=== PATIENT | female | born 1985 | race Caucasian/White ===

== ENCOUNTER 2016-04-04 18:13 | Inpatient (IN) | payer MEDICAID ==
[~2016-04-04] VITALS: Ht 160 cm; Wt 80.0 kg
[~2016-04-04 18:13] MED LIST: ACET325T45 PO; FERR27TA PO; Lanolin TOP; PREN1TAB49 PO
[2016-04-04 18:33] VITALS: BP 116/71; PULSE 91; RESP 19; Ht 160 cm; Wt 80.0 kg
--- NOTE | 2016-04-04 18:40 | TRIAGE ---
OB Triage Datetime Report Generated by CPN: 04/04/2016 18:40 Datetime: 04/04/2016 18:36 Maternal Assessment Level of Consciousness: Fully Conscious DTR's/Clonus: DTRs 1+ Headache: Denies Blurred Vision: No Respiratory Effort: Unlabored Breath Sounds, Left: Clear and Equal Breath Sounds, Right: Clear and Equal Nausea/Vomiting: Denies RUQ Epigastric Pain: Denies Facial Edema: None Labor Evaluation Frequency: 5 Monitor Mode: External Duration (sec)2399: 60-80 Quality: Mild Pattern: Normal: <= 5 Contractions in 10 Minutes Resting Tone Downing: Relaxed Heart Rate FHR Baseline Rate: 125 Monitor Mode: External US Variability: Moderate 6-25 bpm Accelerations: 15X15 Decelerations: None Category: Category I Pain Assessment Pain Scale: 0 Pain Presence: None/Denies Pain Type: N/A Pain Goal: 3 Vaginal Exam Membrane Status: Ruptured Datetime: 04/04/2016 18:29 EGA: 39.2 Datetime: 04/04/2016 18:15 Assessment Type: Triage Maternal Assessment Level of Consciousness: Fully Conscious DTR's/Clonus: DTRs 2+; No Clonus Headache: Denies Blurred Vision: No Respiratory Effort: Unlabored; Regular Rhythm; Equal Expansion Breath Sounds, Left: Clear and Equal Breath Sounds, Right: Clear and Equal Nausea/Vomiting: Denies RUQ Epigastric Pain: Denies Lower Extremities Edema: None Degree: None Upper Extremities Edema: None Degree: None Facial Edema: None Fall Risk Assessment History of Falling: (0) No Secondary Diagnosis: (0) No Ambulatory Aid: (0) Bedrest/Nurse Assist IV Therapy: (0) No Gait: (0) Normal/Bedrest/Immobile Mental Status: (0) Oriented to Own Ability Fall Score: 0 Fall Risk Score Definition: No Risk: No action required Datetime: 04/04/2016 18:06 Time of Arrival: 04/04/2016 18:06 Arrived By: Ambulatory Arrived From: Home Chief Complaint: PT CAME IN C/O SROM SINCE 1740 STATES CLEAR FLUID Movement: Present Contractions: Denies/Absent Rupture of Membranes: Denies Vaginal Discharge: Denies Recent Sexual Intercouse: Denies Abdominal Trauma: Not Applicable Additional Patient Complaints: NONE Time Provider Notified: 04/04/2016 18:18 Provider Notified: NEGRA Initial Plan: MONITOR AND VE
[2016-04-04] MEDS ORDERED: LACTATED RINGER'S 1,000 ML IV PRN (19:48)
[2016-04-04] MEDS ORDERED: BUTORPHANOL 2 MG INJ IV PRN (20:00)
[2016-04-04] MEDS ORDERED: CARBOPROST 250 MCG INJ IM PRN (20:00)
[2016-04-04] MEDS ORDERED: METHYLERGONOVINE 0.2 MG INJ IM PRN (20:00)
[2016-04-04] MEDS ORDERED: OXYTOCIN 30 UNITS/LR 500 ML IV PRN (20:00)
[2016-04-04] MEDS ORDERED: OXYTOCIN 30 UNITS/LR 500 ML IV SCH ×2 (20:00)
[2016-04-04] MEDS ORDERED: AMPICILLIN 2 GM/NS (PMX) 100 ML IV ONE (20:00)
[2016-04-04] MEDS ORDERED: ACETAMINOPHEN 325 MG TAB PO PRN (20:00)
[2016-04-04] MEDS ORDERED: MISOPROSTOL 200 MCG TAB PR PRN (20:00)
[2016-04-04] MEDS ORDERED: IBUPROFEN 600 MG TAB PO PRN (20:00)
[2016-04-04] MEDS ORDERED: LIDOCAINE 1% (MPF) 30 ML INJ INJ PRN (20:00)
[2016-04-04 20:02] LABS: INR 0.94; PROTIME 12.6 Sec (12.2-14.2)
[2016-04-04 20:03] LABS: PARTIAL THROMBOPLASTIN TIME 28.4 Sec (25.0-35.0)
[2016-04-04] MEDS: LACTATED RINGER'S 1,000 ML IV SCH (20:05)
[2016-04-04 20:12] LABS: EOSINOPHILS # 0.1 10^3/ul (0.0-0.5); EOSINOPHILS % 0.8 % (0.0-7.0); HEMOGLOBIN 12.2 g/dl (12.0-16.0); LYMPHOCYTES # 1.3 10^3/ul (0.8-2.9); LYMPHOCYTES % 14.2 % (15.0-51.0); MEAN CORPUSCULAR HEMOGLOBIN 28.9 pg (29.0-33.0); MEAN CORPUSCULAR HGB CONC 33.9 g/dl (32.0-37.0); MEAN CORPUSCULAR VOLUME 85.2 fl (82.0-101.0); MEAN PLATELET VOLUME 10.4 fl (7.4-10.4); MONOCYTE # 0.4 10^3/ul (0.3-0.9); MONOCYTES % 4.4 % (0.0-11.0); NEUTROPHIL # 7.6 10^3/ul (1.6-7.5); NEUTROPHILS % 80.6 % (39.0-77.0); PLATELET COUNT 200 10^3/UL (140-440); RED BLOOD COUNT 4.23 10^6/ul (4.20-5.40); RED CELL DISTRIBUTION WIDTH 14.1 % (11.5-14.5); UNCORRECTED WBC 9.4 10^3/ul (4.8-10.8); WHITE BLOOD COUNT 9.4 10^3/ul (4.8-10.8)
[2016-04-04 20:15] LABS: CONDITION 1
[2016-04-04] MEDS: AMPICILLIN 1 GM/NS (PMX) 50 ML IV SCH (23:26)
[2016-04-05] MEDS: LACTATED RINGER'S 1,000 ML IV SCH ×3 (00:47→11:12)
[2016-04-05] MEDS: AMPICILLIN 1 GM/NS (PMX) 50 ML IV SCH ×3 (03:32→10:27)
[2016-04-05] MEDS ORDERED: OXYTOCIN 30 UNITS/LR 500 ML IV SCH ×2 (05:57→15:41)
[2016-04-05] MEDS ORDERED: FENTAnyl 2MCG/ML-ROPIV 0.2% 100 ML ONE (11:20)
[2016-04-05] MEDS ORDERED: NALOXONE (0.4 MG/ML) INJ IV PRN (12:00)
[2016-04-05] MEDS ORDERED: FENTAnyl 2MCG/ML-ROPIV 0.2% 100 ML BAG EPI SCH (12:00)
[2016-04-05] MEDS ORDERED: TERBUTALINE 1 ML ONE (13:11)
[2016-04-05] MEDS ORDERED: TERBUTALINE 1 MG/ML INJ SC ONE (13:13)
--- NOTE | 2016-04-05 13:56 | HP ---
Date/Time of Note Date/Time of Note DATE: 04/05/16 TIME: 13:55 OB - History Hx of Present Free Text/Dictation IN LABOR WITH SROM Care: Good Care Ultrasounds: Normal mid trimester US Obstetrical Complications: None Medical Complications: None Past Family/Social History * Past Medical, Surgical, Family and Obstetric Histories reviewed from chart. OB Admission Exam Vital Signs Vital Signs Vital Signs Date Time Temp Pulse Resp B/P Pulse Ox O2 Delivery O2 Flow Rate FiO2 04/04/16 18:33 98.6 91 19 116/71 99 Room Air Physical Exam HEENT: WNL Heart: Rhythm Normal Lungs: Clear, Equal Abdomen: WNL Extremities: Normal Reflexes: Normal Last 72 hours Lab Results CBC & BMP 04/04/16 19:10 OB Assessment/Plan Reason for admission: active labor Plan: Expectant Management ZIGGY OMER MD Apr 05, 2016 13:56
--- NOTE | 2016-04-05 13:56 | LDN ---
Date/Time of Note Date/Time of Note DATE: 04/05/16 TIME: 13:56 Delivery Summary NSD . W/O COMPLICATIONS Placenta Delivered: Spontaneously Meconium: none Perineum intact?: Yes Anesthesia type: Epidural Estimated blood loss: 350 Sponge & Needle done & correct: Yes All needle counts correct: Yes Any foreign bodies felt in the: Yes Problems: ZIGGY OMER MD Apr 05, 2016 13:56
[2016-04-05 15:50] VITALS: BP 112/53; PULSE 84; RESP 20
[2016-04-05] MEDS ORDERED: LANOLIN 7 GM TUBE TOP PRN (16:00)
[2016-04-05] MEDS ORDERED: MAGNESIUM HYDROXIDE 30ML CUP PO PRN (16:00)
[2016-04-05] MEDS ORDERED: ZOLPIDEM 5 MG TAB PO PRN (16:00)
[2016-04-05] MEDS ORDERED: DIPHENHYDRAMINE 25 MG CAP PO PRN (16:00)
[2016-04-05] MEDS ORDERED: WITCH HAZEL/GLYCERIN PAD PR PRN (16:00)
[2016-04-05] MEDS ORDERED: ACETAMINOPHEN 325 MG TAB PO PRN (16:00)
[2016-04-05] MEDS ORDERED: ACETAMINOPHEN/CODEINE #3 TAB PO PRN (16:00)
[2016-04-05] MEDS ORDERED: METHYLERGONOVINE 0.2 MG INJ IM PRN (16:00)
[2016-04-05] MEDS ORDERED: SENNA/DOCUSATE NA (8.6MG/50MG) TAB PO PRN (16:00)
[2016-04-05] MEDS ORDERED: BENZOCAINE 20% 56 ML SPRAY TOP PRN (16:00)
[2016-04-05] MEDS ORDERED: OXYTOCIN 30 UNITS/LR 500 ML IV PRN (16:00)
[2016-04-05] MEDS ORDERED: MISOPROSTOL 200 MCG TAB PR PRN (16:00)
[2016-04-05] MEDS ORDERED: CARBOPROST 250 MCG INJ IM PRN (16:00)
[2016-04-05 17:00] VITALS: BP 108/58; PULSE 81; RESP 19
[2016-04-05] MEDS: IBUPROFEN 800 MG TAB PO SCH ×2 (17:53→23:51)
[2016-04-05] MEDS: LACTATED RINGER'S 1,000 ML IV* SCH ×2 (20:00→23:52)
[2016-04-05 20:10] VITALS: BP 112/56; PULSE 64; RESP 20
[2016-04-06 00:10] VITALS: BP 101/56; PULSE 64; RESP 18
[2016-04-06 04:00] VITALS: BP 98/54; PULSE 66; RESP 16
[2016-04-06] MEDS: IBUPROFEN 800 MG TAB PO SCH ×3 (06:07→17:26)
[2016-04-06] MEDS: LACTATED RINGER'S 1,000 ML IV* SCH ×3 (07:41→23:41)
[2016-04-06 08:00] VITALS: BP 98/54; PULSE 59; RESP 16
[2016-04-06 08:25] LABS: BASOPHILS % 0.3 % (0.0-2.0); EOSINOPHILS # 0.1 10^3/ul (0.0-0.5); EOSINOPHILS % 1.2 % (0.0-7.0); HEMATOCRIT 31.8 % (37.0-47.0); HEMOGLOBIN 10.9 g/dl (12.0-16.0); LYMPHOCYTES # 1.5 10^3/ul (0.8-2.9); LYMPHOCYTES % 17.7 % (15.0-51.0); MEAN CORPUSCULAR HEMOGLOBIN 29.5 pg (29.0-33.0); MEAN CORPUSCULAR HGB CONC 34.3 g/dl (32.0-37.0); MEAN CORPUSCULAR VOLUME 85.9 fl (82.0-101.0); MEAN PLATELET VOLUME 9.8 fl (7.4-10.4); MONOCYTE # 0.6 10^3/ul (0.3-0.9); MONOCYTES % 6.6 % (0.0-11.0); NEUTROPHIL # 6.4 10^3/ul (1.6-7.5); NEUTROPHILS % 74.2 % (39.0-77.0); PLATELET COUNT 148 10^3/UL (140-440); RED CELL DISTRIBUTION WIDTH 14.6 % (11.5-14.5); UNCORRECTED WBC 8.7 10^3/ul (4.8-10.8); WHITE BLOOD COUNT 8.7 10^3/ul (4.8-10.8)
[2016-04-06 08:36] LABS: CONDITION 1; LH ANALYZER COMMENTS 1
--- NOTE | 2016-04-06 14:24 | DS ---
Date/Time of Note Date/Time of Note DATE: 04/06/16 TIME: 14:23 Discharge Summary Admission/Discharge Info Admit Date/Time Apr 04, 2016 at 18:18 Discharge Date/Time Final Diagnosis term preg Hospital Course unremarkable Home Meds Active Scripts Acetaminophen* (Acetaminophen*) 325 Mg Tablet, 650 MG PO Q4H Y for PAIN AND OR ELEVATED TEMP, #30 TAB Prov:AJIT COLMENARES MD 11/14/13 [Lanolin] 1 APPLIC OINT No Conflict Check, 1 APPLIC TOP BEDSIDE MEDICATION Y for BEDSIDE FOR MILLER TO NIPPLES Prov:AJIT COLMENARES MD 11/14/13 Reported Medications Vits W-Ca,Fe,Fa(<1MG) () 1 Tab Tablet, 1 TAB PO DAILY 10/17/10 Ferrous Sulfate (Iron) 1 Tab Tablet, 1 TAB PO DAILY 10/17/10 Pending Labs Laboratory Tests Test 04/06/16 07:29 Basophils # 0.010^3/ul (0.0-0.1) Basophils % 0.3% (0.0-2.0) Blood Morphology Comment Eosinophils # 0.110^3/ul (0.0-0.5) Eosinophils % 1.2% (0.0-7.0) Hematocrit 31.8% (37.0-47.0) Hemoglobin 10.9g/dl (12.0-16.0) Lymphocytes # 1.510^3/ul (0.8-2.9) Lymphocytes % 17.7% (15.0-51.0) Mean Corpuscular Hemoglobin 29.5pg (29.0-33.0) Mean Corpuscular Hemoglobin Concent 34.3g/dl (32.0-37.0) Mean Corpuscular Volume 85.9fl (82.0-101.0) Mean Platelet Volume 9.8fl (7.4-10.4) Monocytes # 0.610^3/ul (0.3-0.9) Monocytes % 6.6% (0.0-11.0) Neutrophils # 6.410^3/ul (1.6-7.5) Neutrophils % 74.2% (39.0-77.0) Nucleated Red Blood Cells # 0.010^3/ul (0.0-0.0) Nucleated Red Blood Cells % 0.0/100WBC (0.0-0.0) Platelet Count 23916^3/UL (140-440) Red Blood Count 3.7010^6/ul (4.20-5.40) Red Cell Distribution Width 14.6% (11.5-14.5) White Blood Count 8.710^3/ul (4.8-10.8) ZIGGY OMER MD Apr 06, 2016 14:23
[2016-04-06 16:00] VITALS: BP 103/57; PULSE 66; RESP 16
[2016-04-06 20:30] VITALS: BP 109/55; PULSE 62; RESP 16
[2016-04-07] MEDS: IBUPROFEN 800 MG TAB PO SCH ×3 (00:01→12:41)
[2016-04-07 04:30] VITALS: BP 112/56; PULSE 67; RESP 16
[2016-04-07 08:30] VITALS: BP 120/59; PULSE 70; RESP 19
[2016-04-07] MEDS ORDERED: MEASLES,MUMPS,RUBELLA VACCINE INJ SC* ONE (09:00)
[2016-04-07] MEDS ORDERED: DIPHTH/TET/ACEL PERTUSS (ADULT) 0.5 ML VIAL IM* ONE (09:00)
[2016-04-07] MEDS ORDERED: VARICELLA VACCINE LIVE/PF 1,350 UNIT/0.5 ML ML SC* ONE (09:00)
--- NOTE | 2016-04-07 16:53 | PN ---
Date/Time of Note Date/Time of Note DATE: 04/07/16 TIME: 16:51 OB Subjective Subjective Subjective Patient denies any complaint, Breast feeding, ambulating, tolerated regular diet , Vaginal bleeding decreased, breast feeding. Denies any other complaint, OB Objective Objective Objective GA: A&O, NAD Abdomen: soft, non tender, no fundal tenderness. Extremities: no calf tenderness, no click, no edema Breasts: no evidence of fissure or mastitis Hematology - 72 Hrs Test 04/04/16 19:10 04/06/16 07:29 Basophils # 0.010^3/ul (0.0-0.1) 0.010^3/ul (0.0-0.1) Basophils % 0.0% (0.0-2.0) 0.3% (0.0-2.0) Blood Morphology Comment Eosinophils # 0.110^3/ul (0.0-0.5) 0.110^3/ul (0.0-0.5) Eosinophils % 0.8% (0.0-7.0) 1.2% (0.0-7.0) Hematocrit 36.0% (37.0-47.0) L 31.8% (37.0-47.0) L Hemoglobin 12.2g/dl (12.0-16.0) 10.9g/dl (12.0-16.0) L Lymphocytes # 1.310^3/ul (0.8-2.9) 1.510^3/ul (0.8-2.9) Lymphocytes % 14.2% (15.0-51.0) L 17.7% (15.0-51.0) Mean Corpuscular Hemoglobin 28.9pg (29.0-33.0) L 29.5pg (29.0-33.0) Mean Corpuscular Hemoglobin Concent 33.9g/dl (32.0-37.0) 34.3g/dl (32.0-37.0) Mean Corpuscular Volume 85.2fl (82.0-101.0) 85.9fl (82.0-101.0) Mean Platelet Volume 10.4fl (7.4-10.4) 9.8fl (7.4-10.4) Monocytes # 0.410^3/ul (0.3-0.9) 0.610^3/ul (0.3-0.9) Monocytes % 4.4% (0.0-11.0) 6.6% (0.0-11.0) Neutrophils # 7.610^3/ul (1.6-7.5) H 6.410^3/ul (1.6-7.5) Neutrophils % 80.6% (39.0-77.0) H 74.2% (39.0-77.0) Nucleated Red Blood Cells # 0.010^3/ul (0.0-0.0) 0.010^3/ul (0.0-0.0) Nucleated Red Blood Cells % 0.0/100WBC (0.0-0.0) 0.0/100WBC (0.0-0.0) Platelet Count 99278^3/UL (140-440) 68144^3/UL (140-440) # Red Blood Count 4.2310^6/ul (4.20-5.40) 3.7010^6/ul (4.20-5.40) L Red Cell Distribution Width 14.1% (11.5-14.5) 14.6% (11.5-14.5) H White Blood Count 9.410^3/ul (4.8-10.8) 8.710^3/ul (4.8-10.8) OB Assessment/Plan Other Assessment: PPD #2 s/p Mild anemia, post ,. Asymptomatic Doing well DC home follow up at 6 weeks post TAMARA CHANDLER MD Apr 07, 2016 16:53
== END 2016-04-07 14:15 | disposition home or self-care (01) | DRG 775 ==
LOC: OBT 18:13 → L-D 18:14 → OBT 18:18 → L-D 18:18 → PP1 04-05 15:22
PROVIDERS: ADMIT Obstetrics & Gynecology; ATTEND Obstetrics & Gynecology
PROC: 10E0XZZ Delivery of Products of Conception, External Approach (ICD-10-PCS; principal; 2016-04-05)
DX: O80 Encounter for full-term uncomplicated delivery (principal); Z37.0 Single live birth; Z3A.39 39 weeks gestation of pregnancy
CPT/HCPCS: 62319; 85025; 85610; 85730; 86592; 86900; 86901; 87340; 90715; 90716; 99464; G0463; J0290; J2590; J3010; J3105; J7120